=== PATIENT | female | born 1985 | race Caucasian/White ===

== ENCOUNTER → 2016-11-23 | Outpatient (CLI) | payer OTHER ==
[~2016-11-23] MED LIST: CIPRO250 MG PO; DEPO-PROVER150 MG/M1 IM; FLEXERIL10 MG PO; LORTAB 7.51 TAB PO; MEDROL4 MG/DOSE-; OMEPRAZOLE40 MG PO; PRILOSEC40 MG PO; PROPRANOLOL HCL40 MG PO; ROBAXIN 750750 M1 PO; TYLENOL #3 PO; ZEGERID 20 MG C1 CAP PO; ZYRTEC10 M2 PO
--- NOTE | ~2016-11-23 | NM19 ---
[facility] A Service of [facility] [place] RADIOLOGY TEXT RESULTS PATIENT: BUNNY SOMMER LOCATION: [facility] : 83 UNIT #: [id number] AGE: [address]: DOMINIC ENNIS APRN SEX: F ORDER DR: [id number] [place], [place] [address] [id number] O MR#: [id number] Acc #: [id number] NAME: BUNNY SOMMER : 1985 SEX: F STUDY DATE/TIME: 11/23/2016 10:13 UNIT: [facility] ROOM: STUDY DESCRIPTION: NM Gastric Emptying Study Attending Physician: Dominic Ennis Aprn Referring Physician: Dominic Ennis Aprn Ordering Physician: Dominic Ennis Aprn Primary Care Physician: Roberto Sheets M.D. MEDICAL IMAGING REPORT This report is preliminary unless electronic signature is present EXAM Gastric emptying study. DATE 11/23/2016 HISTORY 31-year-old female with severe acid reflux into the throat. Symptoms present since she was 15. Occasional abdominal pain with alternating constipation and diarrhea. Cholecystectomy 2 years ago. COMPARISON HIDA scan with Kinevac 04/16/2013. Right upper quadrant abdominal ultrasound 03/10/2013. FINDINGS Following the ingestion of 540 mcCi of technetium 99m sulfur colloid in scrambled eggs with water, anterior and posterior planar images were obtained of the abdomen over a 4-hour interval. At 60 minutes, there is 14% emptying with 86% remaining. At 120 minutes, there is 22% emptying was 78% remaining. At 240 minutes, there is 56% emptying with 44% remaining. Normal range of gastric emptying at this institution greater than 60% emptying at 120 minutes and greater 90% emptying at 240 minutes. IMPRESSION Abnormal examination. There is marked delay in gastric emptying at both the 2-hour and 4-hour time quiñonez. Dictated by... [facility] A Service of [facility] [place] RADIOLOGY TEXT RESULTS PATIENT: BUNNY SOMMER LOCATION: [facility] : 83 UNIT #: [id number] AGE: [address]: DOMINIC ENNIS APRN SEX: F ORDER DR: Bety Cole M.D. THIS IS AN ELECTRONICALLY VERIFIED REPORT Bety Cole M.D. at 11/24/2016 7:57 AM DION/roselyn TD: 11/23/2016 14:46 JOB #: [id number] MEDICAL IMAGING REPORT Page 1 of 1 COPY
== END | disposition home or self-care (01) ==
LOC: CNUC 08:44
DX: K21.9 Gastro-esophageal reflux disease without esophagitis (principal); R11.2 Nausea with vomiting, unspecified; R10.13 Epigastric pain; K30 Functional dyspepsia
CPT/HCPCS: 78264; A9541